=== PATIENT | female | born 1975 | race Caucasian/White ===

== ENCOUNTER 2016-08-11 06:03 | Day surgery (SDC) | payer BC ==
[2016-08-08 09:12] LABS: BASOPHILS 0.4 %; BASOPHILS ABSOLUTE 0.05 10/3/uL (0.0-0.16); EOSINOPHILS 5.5 %; EOSINOPHILS ABSOLUTE 0.64 10/3/uL (0.0-0.53); HEMATOCRIT 33.1 % (36.0-48.0); HEMOGLOBIN 10.5 g/dL (12.0-16.0); IMMATURE GRANULOCYTES 0.2 %; IMMATURE GRANULOCYTES ABSOLUTE 0.02 10/3/uL (0.0-0.11); LYMPHOCYTES ABSOLUTE 2.81 10/3/uL (0.67-4.30); MEAN CORPUS HGB CONC 31.7 g/dL (32.0-36.0); MEAN CORPUSCULAR HEMOGLOB 25.5 pg (26.0-34.0); MONOCYTES 6.5 %; MONOCYTES ABSOLUTE 0.76 10/3/uL (0.21-1.20); NEUTROPHILS 63.4 %; NEUTROPHILS ABSOLUTE 7.44 10/3/uL (2.02-8.40); PLATELET COUNT 303 10/3/uL (150-400); RBC DISTRIBUTION WIDTH 17.3 % (12.0-16.0); RED CELL COUNT 4.12 10/6/uL (4.0-5.6); WHITE BLOOD CELLS 11.7 10/3/uL (4.5-10.5)
[2016-08-08 09:16] LABS: MANUAL DIFF NO %; MEAN CORPUSCULAR VOLUME 80.3 fL (80-100)
[2016-08-08 09:27] LABS: BUN (BLOOD UREA NITROGEN) 18 MG/DL (6-23); CALCIUM, SERUM 8.6 MG/DL (8.5-10.4); CHLORIDE, SERUM 107 MMOL/L (96-112); CO2 (CARBON DIOXIDE) 23 MMOL/L (24-34); CREATININE 0.87 MG/DL (0.55-1.02); GFR AFRICAN AMERICAN 96 ML/MIN (>=60); GFR NON AFRICAN AMERICAN 83 ML/MIN (>=60); POTASSIUM, SERUM 3.7 MMOL/L (3.5-5.3); SODIUM, SERUM 141 MMOL/L (135-148)
[2016-08-08 09:29] LABS: GLUCOSE, SERUM 99 MG/DL (60-99)
[2016-08-08 09:51] LABS: PFA (COL/ADP) 101 SEC (51-105); PFA (COL/EPI) > 300 SEC (72-180)
[2016-08-08 10:14] LABS: ASCORBIC ACID (UR NOT ORDER) 20 (NEG); BILIRUBIN, URINE NEGATIVE (NEG); KETONE, URINE TRACE MG/DL (NEG); WBC (NOT ORDERED) (RFLEX) 1 (0-5)
[2016-08-08 10:17] LABS: LEUKOCYTE ESTERASE(NOT OR TRACE (NEG)
[~2016-08-11 06:03] MED LIST: HUMIRA PEN SC; P10 PO; TRANDAT100 PO; VOLT50 PO; [UNRECOGNIZED DRUG - OTHER]
[2016-08-11 07:15] LABS: PFA (COL/EPI) 209 SEC (72-180)
[2016-08-11 07:37] LABS: PFA (COL/ADP) 152 SEC (51-105)
[2016-08-13] MEDS ORDERED: COREG6 PO (14:57)
== END 2016-08-11 07:58 | disposition home or self-care (01) ==
LOC: SDC 06:03
DX: N20.1 Calculus of ureter (principal); I10 Essential (primary) hypertension; Z88.5 Allergy status to narcotic agent; Z53.9 Procedure and treatment not carried out, unspecified reason
CPT/HCPCS: 74000; 80048; 81001; 84703; 85025; 85576; 93005; A9270-GY; J2250; J3010

== ENCOUNTER 2016-08-15 10:03 | Day surgery (SDC) | payer BC ==
--- NOTE | ~2016-08-15 | OP ---
Record Of Operation [facility] [address] [place]. [address] NAME: GAGANDEEP MCNAMARA : 75 STATUS : [facility] [place] PAT#: [id number] AGE: 41 ADM/REG DATE : 08/15/16 MR#: [id number] REPORT SERV DATE: 08/15/16 DICTATED BY: Nidia SHI DATE: 08/15/16 REPORT STATUS : Draft TRANSCRIBED BY: MODL DATE: 08/15/16 DATE OF PROCEDURE: 08/15/2016 PREOPERATIVE DIAGNOSIS: Right proximal ureteral stone. POSTOPERATIVE DIAGNOSIS: Right mid ureteral stone. PROCEDURE: ESWL simulation, cystoscopy, right retrograde pyelography, rigid ureteroscopy, laser lithotripsy, basket stone extraction, double-J stent placement. SURGEON: Nidia Shi M.D. ANESTHESIA: General endotracheal. COMPLICATIONS: Difficult intubation. DRAINS: A 7-Cambodian x 26 cm Contour double-J stent (on a string). BRIEF HISTORY: Ms. Mcnamara is a 41-year-old white female with a long history of right proximal ureteral stone. She underwent treatment elsewhere during the summer and apparently that stone never passed. I saw her in late May with a 5-6 mm right proximal ureteral stone. She was scheduled for lithotripsy, had to cancel and then at that time lithotripsy could be arranged, she had a PFA abnormalities. She was scheduled several more times and finally this week, we had seen her stone still in the proximal ureter four days ago and her PFA normalized. She was scheduled for ESWL today. The risks of bleeding, infection, anesthesia, injury to adjacent organs, possible need for endoscopy, etc, were all discussed. There were no unanswered questions. DESCRIPTION OF PROCEDURE: The patient initially was taken to the lithotripsy suite. We could not see her stone on a preliminary KUB nor could we see it under fluoroscopy. We looked extensively distally and could not find a stone. To my surprise, it had finally moved after three or four months in one location. I offered her either repeat CT imaging or endoscopy today and she wanted to proceed with endoscopy. Additional risk of stent misery, etc, were all discussed. The patient was then taken to the cystoscopy suite and anesthesia was induced with an LMA. Cystoscopy was performed with a 30-degree lens, revealed a normal bladder with a mild cystocele. No tumor, stones, or foreign bodies were noted. A 10-Cambodian cone-tipped catheter was used to perform a right retrograde pyelogram and did not definitively show a filling defect, but there was persistent hydronephrosis with a dilated proximal ureter. I inserted an angled glidewire through a 5-Cambodian open-ended catheter and bypassed a mid ureteral obstruction in the mid sacral area. I then inserted a short rigid ureteroscope. We indeed encountered this stone. I thought that maybe I could remove it primarily and I engaged it briefly in a nitinol basket, but that was unsuccessful. Anesthesia then converted her to endotracheal tube which was difficult requiring a GlideScope. They will talk to her about the possible side effects of that postoperatively. I reinserted the Record Of Operation [address] [place] [facility] [place] [id number] NAME: GAGANDEEP MCNAMARA : 75 STATUS : [facility] [place] PAT#: [id number] AGE: 41 ADM/REG DATE : 08/15/16 MR#: [id number] REPORT SERV DATE: 08/15/16 DICTATED BY: Nidia SHI DATE: 08/15/16 REPORT STATUS : Draft TRANSCRIBED BY: JOHANA DATE: 08/15/16 ureteroscope. Using the 200 micron laser fiber, we nicely fragmented the stone. When I thought I had extractable pieces, I took the large pieces out with a basket and left only passable pieces. There was really not a lot of trauma to the ureter and the scope had passed easily, so I decided to leave a stent with a string. I retrofitted the wire in the cystoscope, placed a 7-Cambodian x 26 cm Contour double-J stent which coiled nicely in the renal pelvis and bladder. I left the string attached which will be affixed to the skin with Mastisol and Tegaderm. I plan to discharge Ms. Mcnamara as an outpatient with the following instructions. DISCHARGE INSTRUCTIONS: 1. Home today. 2. Percocet 5/325 one to two p.o. q.4 hours p.r.n. pain, #20. 3. Pyridium 200 mg one p.o. t.i.d. p.r.n. bladder pain. 4. I think that she can remove the stent in the morning of 08/18/2016. If she has any trouble, she can call our office. Otherwise, I would like to see her in two to three months to review her stone analysis. NEERAJ/JOHANA Nidia Shi M.D. / [id number] CC: Eric Rincon M.D.
[~2016-08-15 10:03] MED LIST changes: +COREG6 PO
[2016-08-21 12:37] LABS: STONE COMPOSITION TWO DNR (())
== END 2016-08-15 19:34 | disposition home or self-care (01) ==
LOC: SDC 10:03
PROC: 0TF68ZZ Fragmentation in Right Ureter, Via Natural or Artificial Opening Endoscopic (ICD-10-PCS; 2016-08-15)
PROC: 0T768DZ Dilation of Right Ureter with Intraluminal Device, Via Natural or Artificial Opening Endoscopic (ICD-10-PCS; 2016-08-15)
PROC: 0TF6XZZ Fragmentation in Right Ureter, External Approach (ICD-10-PCS; principal; 2016-08-15 15:00)
DX: N20.1 Calculus of ureter (principal); I10 Essential (primary) hypertension; M19.90 Unspecified osteoarthritis, unspecified site; G43.909 Migraine, unspecified, not intractable, without status migrainosus; N23 Unspecified renal colic; M06.9 Rheumatoid arthritis, unspecified; E66.9 Obesity, unspecified; Z79.899 Other long term (current) drug therapy; Z87.442 Personal history of urinary calculi; Z88.5 Allergy status to narcotic agent; Z98.890 Other specified postprocedural states
CPT/HCPCS: 74000; 74420; 82365; 84703; A9270-GY; C1758; C1769; C2617; J1720; J2250; J2270; J2405; J2550; J2710; J3010; Q9967